=== PATIENT | male | born 1990 | race Caucasian/White ===

== ENCOUNTER → 2018-07-18 | Outpatient (CLI) | payer MEDICARE ==
[~2018-07-18] MED LIST: FUROSEMIDE INJ 10 MG/ML 4 ML VIAL ONE; LORAZEPAM INJ 2 MG/ML VIAL ONE
--- NOTE | 2018-07-18 21:17 | Diagnostic Imaging Report ---
Renal Scan with Lasix Washout Reason for exam: N31.9 Neuromuscular dysfunction of bladder Clinical information: 28 M with Dandy Walker syndrome; also has polycystic kidney disease. UTI approximately 18 months ago. Technique: The patient received hydroxyzine 1 mg IV prior to the study for light sedation. Following intravenous administration of 11 mCi of Tc-99m MAG3, dynamic images of the kidneys in the posterior projection were obtained through 40 minutes. Lasix 40 mg was administered intravenously at 20 minutes post injection of the tracer. Report: Left kidney: Perfusion of the left kidney is prompt. The kidney has a mildly hypertrophied reniform shape with smooth contours. Extraction of tracer from the blood pool is normal. Clearance of tracer from the renal parenchyma is prompt. The pelvicalyceal system is not dilated although a prominent calyx is seen in the upper pole. Otherwise, no increased pooling of tracer is seen. Drainage of tracer from the pelvicalyceal system is prompt and adequate prior to administration of Lasix. No significant stasis of tracer is seen in the left ureter. Right kidney: Perfusion to the right kidney is prompt although there is only a small faint blush of renal parenchyma in the right renal bed. A very minimal amount of tracer appears in what it presumed to be the right renal pelvis. The function of the right kidney is not sufficient to assess for hydronephrosis and obstruction with the Lasix washout method. No tracer is seen in the right ureter. Differential renal function: The left kidney contributes 97% of total renal function and the right kidney contributes 3% (normal 43-57%). Impression: 1. The function of the left kidney is generally normal. Compensatory hypertrophy is present. No hydronephrosis is present. A slightly prominent calyx is noted in the upper pole. No physiologically significant obstruction of the renal collecting system is present. 2. The very minimal amount of perfused renal parenchyma in the right renal bed accounts for the decreased differential function of 3%. Drainage, hydronephrosis and physiologically significant obstruction of the renal collecting system cannot be assessed due to the very markedly impaired function of the kidney. Signed by: Dr. Yasmeen Delgado M.D. on 07/18/2018 9:14 PM
== END ==
LOC: NM 11:06
PROVIDERS: ATTEND Urology
DX: N31.9 Neuromuscular dysfunction of bladder, unspecified (principal); R39.14 Feeling of incomplete bladder emptying
CPT/HCPCS: 78708; A9562; J1940; J2060